=== PATIENT | female | born 1975 | race Caucasian/White ===

== ENCOUNTER 2017-11-29 20:19 | Emergency (ER) | payer BC, MEDICAID, OTHER ==
[2017-11-29 21:03] VITALS: BP 129/78
[2017-11-29] MEDS ORDERED: Cyclobenzaprine 10 MG Tab PO ONE (22:32)
[2017-11-29] MEDS ORDERED: Ketorolac 60 MG/2 ML SDV IM ONE (22:33)
--- NOTE | 2017-11-29 22:36 | EDM.PDOC ---
ED HPI GENERAL MEDICAL PROBLEM - General Chief Complaint: Neck Problem Stated Complaint: MIGRAINE Time Seen by Provider: 11/29/17 21:26 Source of Information: Reports: Patient History Limitations: Reports: No Limitations - History of Present Illness INITIAL COMMENTS - FREE TEXT/NARRATIVE: pt arrived with severe pain in the rt side of her neck and she has ome lumps that are tender in the scalp. Onset: Gradual, Other (pt is very tight in the rt side of the neck) Duration: Hour(s):, Getting Worse Location: Reports: Head, Neck Associated Symptoms: Reports: Other ( bumbs that are tender on the scalp. ) Neck Pain Score (Numeric/FACES): 4 - Related Data Allergies Allergy/AdvReac Type Severity Reaction Status Date / Time minocycline Allergy Hives Verified 08/14/16 08:23 pregabalin [From Lyrica] Allergy Hives Verified 08/14/16 08:23 purex detergent Allergy Hives Uncoded 08/14/16 08:23 Home Meds: Home Meds Ibuprofen 800 mg PO TID 01/05/14 [History] ALPRAZolam [Alprazolam] 1 tab PO Q4H PRN 07/10/16 [History] Melatonin 10 mg PO BEDTIME 07/10/16 [History] Multivitamin [Multivitamins] 1 tab PO DAILY 07/10/16 [History] Ascorbic Acid [Vitamin C] 1,000 mg PO DAILY 08/14/16 [History] Past Medical History HEENT History: Reports: Impaired Vision Genitourinary History: Reports: Renal Calculus, Other (See Below) Other Genitourinary History: 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 nOW REMOVED. 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: Musculoskeletal History: Reports: Fracture Other Musculoskeletal History: r ankle Neurological History: Reports: Concussion Psychiatric History: Reports: Anxiety, Depression Oncologic (Cancer) History: Reports: Cervix - Infectious Disease History Infectious Disease History: Reports: Chicken Pox - Past Surgical History GI Surgical History: Reports: Cholecystectomy Female Surgical History: Reports: Section, Hysterectomy, Tubal Ligation Social & Family History - Tobacco Use Smoking Status *Q: Former Smoker Years of Tobacco use: 21 Packs/Tins Daily: 0.5 Used Tobacco, but Quit: Yes Month Tobacco Last Used: March Second Hand Smoke Exposure: No - Caffeine Use Caffeine Use: Reports: Coffee, Energy Drinks, Tea - Alcohol Use Days Per Week of Alcohol Use: 0 Number of Drinks Per Day: 3 Total Drinks Per Week: 0 - Recreational Drug Use Recreational Drug Use: No ED ROS GENERAL - Review of Systems Review Of Systems: See Below Constitutional: Reports: No Symptoms HEENT: Reports: Other (pt has tender lumps on the scalp) Cardiovascular: Reports: No Symptoms Endocrine: Reports: No Symptoms GI/Abdominal: Reports: No Symptoms : Reports: No Symptoms Musculoskeletal: Reports: Other ( tightness in the rt side of the neck. ) ED EXAM, UPPER BACK/NECK PAIN - Physical Exam Exam: See Below Text/Narrative:: pt arrived with pain on the rt side of the neck and lumps on the scalp. Exam Limited By: No Limitations General Appearance: Alert, Anxious, Moderate Distress Ears Exam: Normal TMs Nose Exam: Normal Inspection Throat/Mouth Exam: Normal Inspection Head Exam: Other (pt has redish lumps on the top of the scalp . These are tender and there is no drainage from the area. ) Neck Exam: Muscle Spasm, Other (pt has marked tenderness on the rt side of the neck. There is considerable spasm present. ) Cardiovascular/Respiratory: Regular Rate, Rhythm GI/Abdominal: Soft, Non-Tender (Female) Exam: Deferred Rectal (Female) Exam: Deferred Back Exam: Normal Inspection Extremities: Normal Inspection Neurologic: Alert, Oriented x 3 Course - Vital Signs Last Recorded V/S: Last Vital Signs Temp 36.8 C 11/29/17 21:13 Pulse 94 11/29/17 21:13 Resp 14 11/29/17 21:13 BP 129/78 11/29/17 21:13 Pulse Ox 96 11/29/17 21:13 - Orders/Labs/Meds Orders: Active Orders 24 hr Category Date Time Status Cervical Spine Min 4V [CR] Stat Exams 11/29/17 22:34 Taken Labs: Laboratory Tests 11/29/17 11/29/17 11/29/17 Range/Units 22:44 22:44 22:44 WBC 9.1 (4.5-11.0) K/uL RBC 4.80 (3.30-5.50) M/uL Hgb 14.1 (12.0-15.0) g/dL Hct 42.2 (36.0-48.0) % MCV 88 (80-98) fL MCH 29 (27-31) pg MCHC 33 (32-36) % Plt Count 394 (150-400) K/uL Neut % (Auto) 63 (36-66) % Lymph % (Auto) 31 (24-44) % Maury % (Auto) 5 (2-6) % Eos % (Auto) 1 L (2-4) % Baso % (Auto) 1 (0-1) % Sodium 138 L (140-148) mmol/L Potassium 3.2 L (3.6-5.2) mmol/L Chloride 102 (100-108) mmol/L Carbon Dioxide 29 (21-32) mmol/L Anion Gap 10.2 (5.0-14.0) mmol/L BUN 10 (7-18) mg/dL Creatinine 0.8 (0.6-1.0) mg/dL Est Cr Clr Drug Dosing 84.11 mL/min Estimated GFR (MDRD) > 60 (>60) Glucose 99 (74-106) mg/dL Calcium 8.4 L (8.5-10.1) mg/dL C-Reactive Protein 0.54 H (0.0-0.3) mg/dL Meds: Medications Discontinued Medications Generic Name Dose Route Start Last Admin Trade Name Freq PRN Reason Stop Dose Admin Cyclobenzaprine HCl 10 mg 11/29/17 22:32 11/29/17 22:39 Flexeril PO 11/29/17 22:33 10 mg ONETIME ONE Administration Ketorolac Tromethamine 60 mg 11/29/17 22:33 11/29/17 22:39 Toradol IM 11/29/17 22:34 60 mg ONETIME ONE Administration - Re-Assessments/Exams Free Text/Narrative Re-Assessment/Exam: 11/29/17 23:36 pt was given torodol 60mg im and flexeril 10mg . She did get some relief with that. She had a cervical spine series which did not show sig abnormalities. Departure - Departure Time of Disposition: 23:20 Disposition: Home, Self-Care 01 Condition: Fair Clinical Impression: Cervical paraspinal muscle spasm, Infection of scalp - Discharge Information Instructions: Muscle Cramps and Spasms, [id number] Referrals: Rocky Gray MD [Primary Care Provider] - Forms: ED Department Discharge Care Plan Goals: Moist warm packs to the rt post cervical area, stretching exercise for the cervical area, warm packs to the area in the scalp which appears to be infected. flexeril 10mf 1/2 tab am, 1/2 tab at noon, 1 tab at bedtime, torodol 10mg q6h for the next 4-5 days, If by Saturday things are not better call me at the ER and will set pt up for physical therapy. ; keflex 500mg tid for scalp - My Orders Last 24 Hours: My Active Orders 11/29/17 22:34 Cervical Spine Min 4V [CR] Stat - Assessment/Plan Last 24 Hours: My Active Orders 11/29/17 22:34 Cervical Spine Min 4V [CR] Stat
--- NOTE | 2017-12-02 10:23 | CR ---
No fracture or acute alignment abnormality. Disc height loss lower cervical spine.
== END 2017-11-29 23:34 | disposition home or self-care (01) ==
LOC: JP.ED 20:19
DX: M62.838 Other muscle spasm (principal); L08.9 Local infection of the skin and subcutaneous tissue, unspecified; Z87.891 Personal history of nicotine dependence; Z88.1 Allergy status to other antibiotic agents
CPT/HCPCS: 36415; 72050; 80048; 85025; 86140; 96372; 99284; A9270; J1885

== ENCOUNTER 2018-02-15 11:07 | Emergency (ER) | payer OTHER ==
[2018-02-15 11:23] VITALS: BP 121/73
[2018-02-15] MEDS ORDERED: Ondansetron 4 MG Tab.DIS PO ONE (11:39)
[2018-02-15] MEDS ORDERED: HYDROmorphone 1 MG/ML Syringe IM ONE (11:39)
--- NOTE | 2018-02-15 11:45 | EDM.PDOC ---
ED HPI GENERAL MEDICAL PROBLEM - General Chief Complaint: Genitourinary Problem Stated Complaint: URINATING BLOOD Time Seen by Provider: 02/15/18 11:40 Source of Information: Reports: Patient History Limitations: Reports: No Limitations - History of Present Illness INITIAL COMMENTS - FREE TEXT/NARRATIVE: pt had a 4mm stone which was causing very severe pain. She went to [place] and she had lithotripsy yesterday. A stent was placed. She is now passing very bloody urine and she is having severe pain . She did not have any pain meds all nite because there was a mix up in her perscrition and it got sent to the [facility]. Onset: Other (pt had lithotripsy yesterday. ) Duration: Hour(s):, Getting Worse Location: Reports: Abdomen, Other (lower abdoman. ) Quality: Reports: Sharp, Stabbing Lower Abdominal Pain Score (Numeric/FACES): 7 - Related Data Allergies Allergy/AdvReac Type Severity Reaction Status Date / Time minocycline Allergy Hives Verified 02/15/18 11:25 pregabalin [From Lyrica] Allergy Hives Verified 02/15/18 11:25 Home Meds: Home Meds Ibuprofen 800 mg PO TID 01/05/14 [History] ALPRAZolam [Alprazolam] 1 tab PO Q4H PRN 07/10/16 [History] Melatonin 10 mg PO BEDTIME 07/10/16 [History] Multivitamin [Multivitamins] 1 tab PO DAILY 07/10/16 [History] Ascorbic Acid [Vitamin C] 1,000 mg PO DAILY 08/14/16 [History] Ciprofloxacin HCl [Cipro] 1 tab PO ASDIRECTED 02/15/18 [History] Past Medical History HEENT History: Reports: Impaired Vision Genitourinary History: Reports: Renal Calculus, Other (See Below) Other Genitourinary History: 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 History: Reports: Fracture Other Musculoskeletal History: r ankle Neurological History: Reports: Concussion Psychiatric History: Reports: Anxiety, Depression Oncologic (Cancer) History: Reports: Cervix - Infectious Disease History Infectious Disease History: Reports: Chicken Pox - Past Surgical History GI Surgical History: Reports: Cholecystectomy Female Surgical History: Reports: Section, Hysterectomy, Tubal Ligation Social & Family History - Tobacco Use Smoking Status *Q: Never Smoker Years of Tobacco use: 21 Packs/Tins Daily: 0.5 Used Tobacco, but Quit: Yes Month/Year Tobacco Last Used: March Second Hand Smoke Exposure: No - Caffeine Use Caffeine Use: Reports: Coffee, Energy Drinks, Tea - Alcohol Use Days Per Week of Alcohol Use: 0 Number of Drinks Per Day: 3 Total Drinks Per Week: 0 - Recreational Drug Use Recreational Drug Use: No ED ROS GENERAL - Review of Systems Review Of Systems: See Below Constitutional: Reports: No Symptoms HEENT: Reports: No Symptoms Respiratory: Reports: No Symptoms Cardiovascular: Reports: No Symptoms Endocrine: Reports: No Symptoms GI/Abdominal: Reports: Abdominal Pain, Other (lower abdomanal pain) : Reports: Hematuria Musculoskeletal: Reports: No Symptoms Skin: Reports: No Symptoms ED EXAM, GI/ABD - Physical Exam Exam: See Below Text/Narrative:: pt had lithotripsy yesterday for a 4 mm stone. She is passing alot of blood. She is having severe pain. She feels like she is not emptying her bladder. Her urine does not show alot of bacteria but she has a positive nitrite. Exam Limited By: No Limitations General Appearance: Alert, Severe Distress Ears: Normal TMs Nose: Normal Inspection Throat/Mouth: Normal Inspection Head: Atraumatic Neck: Normal Inspection Respiratory/Chest: No Respiratory Distress Cardiovascular: Regular Rate, Rhythm GI/Abdominal Exam: Other (pt has diffuse lower abdomnal tenderness. ) (Female) Exam: Deferred Rectal (Female) Exam: Deferred Back Exam: Normal Inspection Extremities: Normal Inspection Neurological: Alert, Oriented, Normal Cognition Course - Vital Signs Last Recorded V/S: Last Vital Signs Temp 36.5 C 02/15/18 11:25 Pulse 85 02/15/18 11:25 Resp 18 02/15/18 11:25 BP 121/73 02/15/18 11:25 Pulse Ox 98 02/15/18 11:25 - Orders/Labs/Meds Orders: Active Orders 24 hr Category Date Time Status Bladder Scan [RC] ONETIME Care 02/15/18 12:25 Active CULTURE URINE [RM] Stat Lab 02/15/18 12:31 Received UA W/MICROSCOPIC [URIN] Urgent Lab 02/15/18 11:36 Ordered Labs: Laboratory Tests 02/15/18 Range/Units 11:36 Urine Color Red Urine Appearance Turbid Urine pH 7.0 (4.5-8.0) Ur Specific [place] 1.015 (1.008-1.030) Urine Protein 500 H (NEGATIVE) mg/dL Urine Glucose (UA) Normal (NEGATIVE) mg/dL Urine Ketones 15 H (NEGATIVE) mg/dL Urine Occult Blood Large (NEGATIVE) Urine Nitrite Positive H (NEGATIVE) Urine Bilirubin Small (NEGATIVE) Urine Urobilinogen 1 (NORMAL) mg/dL Ur Leukocyte Esterase Large (NEGATIVE) Urine RBC Packed H (0-5) Urine WBC 0-5 (0-5) Ur Epithelial Cells Rare Amorphous Sediment Not seen Urine Bacteria Not seen Urine Mucus Not seen Meds: Medications Discontinued Medications Generic Name Dose Route Start Last Admin Trade Name Freq PRN Reason Stop Dose Admin Hydromorphone HCl 1 mg 02/15/18 11:39 02/15/18 11:47 Dilaudid IM 02/15/18 11:40 1 mg ONETIME ONE Administration Ondansetron HCl 4 mg 02/15/18 11:39 02/15/18 11:46 Zofran Odt PO 02/15/18 11:40 4 mg ONETIME ONE Administration Oxycodone/Acetaminophen 1 tab 02/15/18 12:48 Percocet 325-5 Mg PO 02/15/18 12:49 ONETIME ONE - Re-Assessments/Exams Free Text/Narrative Re-Assessment/Exam: 02/15/18 12:49 pt was given dilaudid 1 mg im and she had fair relief. She had a bladder scan and she had some residual but not aslot. Departure - Departure Time of Disposition: 12:50 Disposition: Home, Self-Care 01 Condition: Fair Clinical Impression: Status post laser lithotripsy of ureteral calculus, UTI (urinary tract infection) - Discharge Information Referrals: Rocky Gray MD [Primary Care Provider] - Forms: ED Department Discharge Care Plan Goals: push fluids, percocet 5/325 q6h for the first 2 days then go to the [facility] 5/325 q6h prn for pain. rtc if it is not going well. A urine culture was done. - My Orders Last 24 Hours: My Active Orders 02/15/18 11:36 UA W/MICROSCOPIC [URIN] Urgent 02/15/18 12:25 Bladder Scan [RC] ONETIME 02/15/18 12:31 CULTURE URINE [RM] Stat - Assessment/Plan Last 24 Hours: My Active Orders 02/15/18 11:36 UA W/MICROSCOPIC [URIN] Urgent 02/15/18 12:25 Bladder Scan [RC] ONETIME 02/15/18 12:31 CULTURE URINE [RM] Stat
[2018-02-15] MEDS ORDERED: Acetaminophen/oxyCODONE 325-5 MG Tab PO ONE (12:48)
== END 2018-02-15 13:19 | disposition home or self-care (01) ==
LOC: JP.ED 11:07
DX: N39.0 Urinary tract infection, site not specified (principal); R31.9 Hematuria, unspecified; F41.9 Anxiety disorder, unspecified; F32.9 Major depressive disorder, single episode, unspecified; Z87.442 Personal history of urinary calculi; Z87.891 Personal history of nicotine dependence; Z79.899 Other long term (current) drug therapy; Z88.8 Allergy status to other drugs, medicaments and biological substances
CPT/HCPCS: 51798; 81001; 87086; 96372; 99284; A9270; J1170

== ENCOUNTER 2018-02-24 04:47 | Emergency (ER) | payer OTHER ==
[2018-02-24] MEDS ORDERED: Ketorolac 30 MG/ML SDV ONE (05:01)
[2018-02-24] MEDS ORDERED: Morphine 4 MG/ML Syringe ONE (05:02)
[2018-02-24] MEDS ORDERED: Ketorolac 30 MG/ML SDV IVPUSH ONE (05:03)
--- NOTE | 2018-02-24 05:13 | EDM.PDOC ---
<Jace Thomas G - Last Filed: 02/24/18 06:51> ED HPI GENERAL MEDICAL PROBLEM - General Chief Complaint: Abdominal Pain Stated Complaint: SOB Time Seen by Provider: 02/24/18 05:00 Source of Information: Reports: Patient, Old Records, RN History Limitations: Reports: No Limitations - History of Present Illness INITIAL COMMENTS - FREE TEXT/NARRATIVE: 42 yo female here with right flank pain extending to the groin. Had lithotripsy several days ago for a stone in [place]. Was here a few days ago for the same pain and was sent home with [place]/Percocet( ten days ago), has not followed up with anyone since that visit. Has had some nausea, not currently. No fever. Urine is dark yellow she states. 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 below) (none, is out of her narcotic medications) suprapubic Pain Score (Numeric/FACES): 10 lower back Pain Score (Numeric/FACES): 10 - Related Data Allergies Allergy/AdvReac Type Severity Reaction Status Date / Time minocycline Allergy Hives Verified 02/24/18 04:59 pregabalin [From Lyrica] Allergy Hives Verified 02/24/18 04:59 Home Meds: Home Meds Ibuprofen 800 mg PO TID 01/05/14 [History] ALPRAZolam [Alprazolam] 1 tab PO Q4H PRN 07/10/16 [History] Melatonin 10 mg PO BEDTIME 07/10/16 [History] Multivitamin [Multivitamins] 1 tab PO DAILY 07/10/16 [History] Ascorbic Acid [Vitamin C] 1,000 mg PO DAILY 08/14/16 [History] Ciprofloxacin HCl [Cipro] 1 tab PO ASDIRECTED 02/15/18 [History] Past Medical History HEENT History: Reports: Impaired Vision Genitourinary History: Reports: Renal Calculus, Other (See Below) Other Genitourinary History: 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 History: Reports: Fracture Other Musculoskeletal History: r ankle Neurological History: Reports: Concussion Psychiatric History: Reports: Anxiety, Depression Oncologic (Cancer) History: Reports: Cervix - Infectious Disease History Infectious Disease History: Reports: Chicken Pox - Past Surgical History GI Surgical History: Reports: Cholecystectomy Female Surgical History: Reports: Section, Hysterectomy, Tubal Ligation Social & Family History - Tobacco Use Smoking Status *Q: Never Smoker Years of Tobacco use: 21 Packs/Tins Daily: 0.5 Used Tobacco, but Quit: Yes Month/Year Tobacco Last Used: March Second Hand Smoke Exposure: No - Caffeine Use Caffeine Use: Reports: Coffee, Energy Drinks, Tea - Alcohol Use Days Per Week of Alcohol Use: 0 Number of Drinks Per Day: 3 Total Drinks Per Week: 0 - Recreational Drug Use Recreational Drug Use: No ED ROS GENERAL - Review of Systems Review Of Systems: See Below Constitutional: Reports: No Symptoms HEENT: Reports: No Symptoms Respiratory: Reports: No Symptoms Cardiovascular: Reports: No Symptoms GI/Abdominal: Reports: Abdominal Pain, Nausea. Denies: Black Stool, Bloody Stool, Constipation, Diarrhea, Decreased Appetite, Hematemesis, Hematochezia, Melena, Vomiting : Reports: Flank Pain. Denies: Dysuria, Hematuria Musculoskeletal: Reports: No Symptoms Skin: Reports: No Symptoms Neurological: Reports: No Symptoms Psychiatric: Reports: No Symptoms ED EXAM, RENAL/ - Physical Exam Exam: See Below Exam Limited By: No Limitations General Appearance: Alert, WD/WN, No Apparent Distress Eye Exam: Bilateral Eye: Normal Inspection Ears: Normal External Exam, Normal Canal, Hearing Grossly Normal, Normal TMs Nose: Normal Inspection, Normal Mucosa Throat/Mouth: Normal Inspection, Normal Lips, Normal Oropharynx, Normal Voice, No Airway Compromise Head: Atraumatic, Normocephalic Neck: Normal Inspection, Supple, Non-Tender Respiratory/Chest: No Respiratory Distress, Lungs Clear, Normal Breath Sounds, No Accessory Muscle Use Cardiovascular: Regular Rate, Rhythm, No Edema GI/Abdominal: Normal Bowel Sounds, Soft, Non-Tender, No Distention Back Exam: Normal Inspection. No: CVA Tenderness (R), CVA Tenderness (L) Extremities: Normal Inspection, Normal Range of Motion, Non-Tender, No Pedal Edema Neurological: Alert, Oriented, CN II-XII Intact, Normal Cognition, No Motor/ Sensory Deficits Psychiatric: Normal Affect, Normal Mood Skin Exam: Warm, Dry, Intact, Normal Color, No Rash Course - Vital Signs Last Recorded V/S: Last Vital Signs Temp 95.0 F L 02/24/18 05:13 Pulse 104 H 02/24/18 05:13 Resp 22 H 02/24/18 05:13 BP 125/72 02/24/18 05:13 Pulse Ox 99 02/24/18 05:13 - Orders/Labs/Meds Orders: Active Orders 24 hr Category Date Time Status Abdomen Pelvis wo Cont [CT] Stat Exams 02/24/18 05:20 Taken UA W/MICROSCOPIC [URIN] Stat Lab 02/24/18 05:17 Ordered Labs: Laboratory Tests 02/24/18 Range/Units 05:17 Urine Color Yellow Urine Appearance Cloudy Urine pH 6.0 (4.5-8.0) Ur Specific [place] 1.020 (1.008-1.030) Urine Protein Negative (NEGATIVE) mg/dL Urine Glucose (UA) Normal (NEGATIVE) mg/dL Urine Ketones Negative (NEGATIVE) mg/dL Urine Occult Blood Negative (NEGATIVE) Urine Nitrite Negative (NEGATIVE) Urine Bilirubin Small (NEGATIVE) Urine Urobilinogen Normal (NORMAL) mg/dL Ur Leukocyte Esterase Negative (NEGATIVE) Urine RBC Not seen (0-5) Urine WBC 0-5 (0-5) Ur Epithelial Cells Moderate Amorphous Sediment Rare Urine Bacteria Few Urine Mucus Many Meds: Medications Discontinued Medications Generic Name Dose Route Start Last Admin Trade Name Freq PRN Reason Stop Dose Admin Alprazolam 0.25 mg 02/24/18 06:54 02/24/18 06:59 Xanax PO 02/24/18 06:55 0.25 mg ONETIME ONE Administration Lactated Ringer's 1,000 mls @ 1,000 mls/hr 02/24/18 05:16 02/24/18 05:20 Ringers, Lactated IV 02/24/18 06:15 1,000 mls/hr BOLUS ONE Administration Ketorolac Tromethamine 30 mg 02/24/18 05:03 02/24/18 05:19 Toradol IVPUSH 02/24/18 05:04 30 mg ONETIME ONE Administration Ketorolac Tromethamine Confirm 02/24/18 05:01 02/24/18 05:18 Toradol Administered 02/24/18 05:02 Not Given Dose 30 mg .ROUTE .STK-MED ONE Morphine Sulfate 4 mg 02/24/18 05:02 02/24/18 05:57 Morphine IVPUSH 02/24/18 05:03 4 mg ONETIME ONE Administration Morphine Sulfate Confirm 02/24/18 05:02 02/24/18 05:18 Morphine Administered 02/24/18 05:03 Not Given Dose 4 mg .ROUTE .STK-MED ONE - Radiology Interpretation Free Text/Narrative:: CT KUB-no pathology noted. CT Results Date: 02/24/18 CT Results Time: 06:40 Departure - Departure Disposition: Home, Self-Care 01 Clinical Impression: Anxiety - Discharge Information Instructions: Generalized Anxiety Disorder, Adult Referrals: PCP,None [Primary Care Provider] - Forms: ED Department Discharge Care Plan Goals: Follow-up with outpatient appointments as recommended by the crisis prevention team. Return anytime if worsening or concerns. <Sim Collazo - Last Filed: 02/24/18 13:51> Departure - Departure Time of Disposition: 08:36
[2018-02-24 05:14] VITALS: BP 125/72
[2018-02-24] MEDS ORDERED: Lactated Ringers 1,000 ML IV ONE (05:16)
[2018-02-24] MEDS: Morphine 4 MG/ML Syringe IVPUSH ONE ×2 (05:27→05:57)
[2018-02-24] MEDS ORDERED: ALPRAZolam 0.25 MG Tab PO ONE (06:54)
== END 2018-02-24 08:36 | disposition home or self-care (01) ==
LOC: JP.ED 04:47
DX: F41.9 Anxiety disorder, unspecified (principal); R10.9 Unspecified abdominal pain; Z87.891 Personal history of nicotine dependence; F32.9 Major depressive disorder, single episode, unspecified; Z79.899 Other long term (current) drug therapy; Z88.8 Allergy status to other drugs, medicaments and biological substances
CPT/HCPCS: 74176; 81001; 96361; 96374; 96375; 99285; A9270; J1885; J2270; J7120

== ENCOUNTER 2019-12-25 06:29 | Emergency (ER) | payer SELFPAY ==
[2019-12-25 07:20] VITALS: BP 116/71; PULSE 111
--- NOTE | 2019-12-25 07:46 | EDM.PDOC ---
ED HPI GENERAL MEDICAL PROBLEM - General Chief Complaint: General Stated Complaint: MEDICAL VIA [facility] Time Seen by Provider: 12/25/19 07:00 Source of Information: Reports: Patient History Limitations: Reports: No Limitations - History of Present Illness INITIAL COMMENTS - FREE TEXT/NARRATIVE: pt arried having a full blown panic attack. She has been under alot of stress financially with some car problems and other things. She is the full support for four children. Her kids have been very supportive of her. She does have a 19 year old who is having some problems and she is worroied about him. 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 She has been working at [employer] and so she is 3 hours away. She works alot of hours and then she is home. She got off shift last nite and drank several energy drinks and drove home . She got home about 4 am. She has not been sleeping well. She has tried a number of medications and they have not been successful. Right now she has been taking Paxil and then when she feels like she is getting out of control she takes xanax. Onset: Today, Sudden, Other (pt had a episode where sh was totally out of control) Duration: Hour(s): Location: Reports: Generalized, Other (pt was breathing so rapidly that she passed out. ) Associated Symptoms: Reports: Shortness of Breath, Other (pt was breathing rapidly and short. ) general body pain Pain Score (Numeric/FACES): 5 - Related Data Allergies Allergy/AdvReac Type Severity Reaction Status Date / Time minocycline Allergy Hives Verified 12/25/19 08:27 pregabalin [From Lyrica] Allergy Hives Verified 12/25/19 08:27 Home Meds: Home Meds Ibuprofen 800 mg PO TID 01/05/14 [History] ALPRAZolam [Alprazolam] 0.25 mg PO Q4H PRN 07/10/16 [History] Melatonin 10 mg PO BEDTIME 07/10/16 [History] Multivitamin [Multivitamins] 1 tab PO DAILY 07/10/16 [History] Ascorbic Acid [Vitamin C] 1,000 mg PO DAILY 08/14/16 [History] Biotin 10,000 mcg PO WEEKLY 12/25/19 [History] PARoxetine HCl [Paroxetine HCl] 20 mg PO DAILY 12/25/19 [History] Past Medical History HEENT History: Reports: Impaired Vision Genitourinary History: Reports: Renal Calculus, Other (See Below) Other Genitourinary History: 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: Musculoskeletal History: Reports: Fracture Other Musculoskeletal History: r ankle Neurological History: Reports: Concussion Psychiatric History: Reports: Anxiety, Depression, Panic Attack Oncologic (Cancer) History: Reports: Cervix - Infectious Disease History Infectious Disease History: Reports: Chicken Pox - Past Surgical History GI Surgical History: Reports: Cholecystectomy Female Surgical History: Reports: Section, Hysterectomy, Lithotripsy /ESWL, Tubal Ligation Social & Family History - Tobacco Use Smoking Status *Q: Current Every Day Smoker Years of Tobacco use: 2 Packs/Tins Daily: 0.3 Second Hand Smoke Exposure: Yes - Caffeine Use Caffeine Use: Reports: Coffee, Energy Drinks - Recreational Drug Use Recreational Drug Use: Yes Drug Use in Last 12 Months: No Recreational Drug Type: Reports: Marijuana/Hashish Recreational Drug Use Frequency: Rarely ED ROS GENERAL - Review of Systems Review Of Systems: See Below Constitutional: Reports: No Symptoms HEENT: Reports: No Symptoms Respiratory: Reports: Shortness of Breath Cardiovascular: Reports: Palpitations Endocrine: Reports: No Symptoms GI/Abdominal: Reports: No Symptoms : Reports: No Symptoms Musculoskeletal: Reports: No Symptoms Skin: Reports: No Symptoms ED EXAM, GENERAL - Physical Exam Exam: See Below Free Text/Narrative:: pt arrived in a full blown anxiety attack. She is exhausted, she has not been eating right and has alot of responsibility She has had extra stress recently. She has a 19 year old son who has had alot of depression. She does depend alot on him when she is gone. She has had car problems. She is working a fair distasnce away. She sees her kids as good kids and they are trying to be helpful. Exam Limited By: No Limitations General Appearance: Alert, Anxious, Other (pt was hyperventilating. ) Ears: Normal TMs Nose: Normal Inspection Throat/Mouth: Normal Inspection Head: Atraumatic Neck: Normal Inspection Respiratory/Chest: Other (pt was hyperventilating on arrival. ) Cardiovascular: Regular Rate, Rhythm GI/Abdominal: Soft, Non-Tender Rectal (Female) Exam: Deferred Back Exam: Normal Inspection Extremities: Normal Inspection Neurological: Alert, Oriented, Normal Cognition Psychiatric: Anxious Course - Vital Signs Last Recorded V/S: Last Vital Signs Temp 35.4 C L 12/25/19 06:55 Pulse 111 H 12/25/19 06:55 Resp 20 12/25/19 06:55 BP 116/71 12/25/19 06:55 Pulse Ox 99 12/25/19 06:55 - Orders/Labs/Meds Labs: Laboratory Tests 12/25/19 12/25/19 12/25/19 Range/Units 08:03 08:03 08:25 WBC 7.9 (4.5-11.0) K/uL RBC 3.99 (3.30-5.50) M/uL Hgb 12.3 (12.0-15.0) g/dL Hct 37.5 (36.0-48.0) % MCV 94 (80-98) fL MCH 31 (27-31) pg MCHC 33 (32-36) % Plt Count 294 (150-400) K/uL Neut % (Auto) 71 H (36-66) % Lymph % (Auto) 21 L (24-44) % Falls % (Auto) 7 H (2-6) % Eos % (Auto) 1 L (2-4) % Baso % (Auto) 1 (0-1) % Sodium 140 (140-148) mmol/L Potassium 3.7 (3.6-5.2) mmol/L Chloride 100 (100-108) mmol/L Carbon Dioxide 31 (21-32) mmol/L Anion Gap 9.2 (5.0-14.0) mmol/L BUN 7 (7-18) mg/dL Creatinine 0.8 (0.6-1.0) mg/dL Est Cr Clr Drug Dosing 82.43 mL/min Estimated GFR (MDRD) > 60 (>60) Glucose 105 (74-106) mg/dL Calcium 8.2 L (8.5-10.1) mg/dL Total Bilirubin 0.3 (0.2-1.0) mg/dL AST 18 (15-37) U/L ALT 26 (12-78) U/L Alkaline Phosphatase 79 (46-116) U/L Total Protein 7.1 (6.4-8.2) g/dL Albumin 3.6 (3.4-5.0) g/dL Globulin 3.5 (2.3-3.5) g/dL Albumin/Globulin Ratio 1.0 L (1.2-2.2) Urine Color Yellow (YELLOW) Urine Appearance Slightly cloudy A (CLEAR) Urine pH 7.0 (5.0-8.0) Ur Specific [place] 1.020 (1.008-1.030) Urine Protein Negative (NEGATIVE) mg/dL Urine Glucose (UA) Negative (NEGATIVE) mg/dL Urine Ketones Negative (NEGATIVE) mg/dL Urine Occult Blood Negative (NEGATIVE) Urine Nitrite Negative (NEGATIVE) Urine Bilirubin Negative (NEGATIVE) Urine Urobilinogen 0.2 (0.2-1.0) EU/dL Ur Leukocyte Esterase Negative (NEGATIVE) Urine RBC 0-5 (0-5) Urine WBC 5-10 H (0-5) Ur Epithelial Cells Few Amorphous Sediment Not seen Urine Bacteria Moderate Urine Mucus Not seen - Re-Assessments/Exams Free Text/Narrative Re-Assessment/Exam: 12/25/19 08:29 [facility] was contacted and Her counselor Shayy no longer is there. Oxana from [facility] will definitely call the pt today. Departure - Departure Time of Disposition: 08:30 Disposition: Home, Self-Care 01 Condition: Fair Clinical Impression: Panic attack as reaction to stress - Discharge Information Instructions: Panic Attack, [id number], Stress Referrals: PCP,None [Primary Care Provider] - Forms: ED Department Discharge Care Plan Goals: See a counselor at [facility], Try to get rest as pt has not been sleeping. take 2-3 days off in order to get her situation under control. Continue same meds, trazadone 50 mg hs to promotr better rest. Sepsis Event Note - Evaluation Sepsis Screening Result: No Definite Risk - Focused Exam Date Exam was Performed: 12/28/19 Time Exam was Performed: 07:26
== END 2019-12-25 09:58 | disposition home or self-care (01) ==
LOC: JP.ED 06:29
DX: F43.0 Acute stress reaction (principal); F32.9 Major depressive disorder, single episode, unspecified; F17.210 Nicotine dependence, cigarettes, uncomplicated; Z88.8 Allergy status to other drugs, medicaments and biological substances; Z79.899 Other long term (current) drug therapy
CPT/HCPCS: 36415; 80053; 81001; 85025; 99283